=== PATIENT | female | born 1960 | race Caucasian/White ===

== ENCOUNTER 2017-02-21 14:56 | Emergency (ER) | payer OTHER ==
[~2017-02-21] VITALS: Ht 160 cm; Wt 48.0 kg
[2017-02-21 14:57] VITALS: TEMP 36.6; Ht 160 cm; Wt 48.0 kg
[2017-02-21] MEDS ORDERED: DiphenhydrAMINE HCL 50 MG/ML VIAL IV STA (15:12)
[2017-02-21] MEDS ORDERED: DEXAMETHASONE SOD INJ 4 MG/ML VIAL IV STA (15:12)
[2017-02-21] MEDS ORDERED: ALBUT/IPRATROP 3MG/0.5MG NEB 3 ML VIAL INH STA (15:12)
[2017-02-21] MEDS ORDERED: RANITIDINE HCL 50 MG/100 ML D5W IV STA (15:12)
[2017-02-21 15:35] VITALS: O2SAT 100
[2017-02-21 15:44] LABS: BUN/CREATININE RATIO 9.7 (10-20); CALCIUM 9.8 mg/dl (8.5-10.1); CREATININE 0.76 mg/dl (0.60-1.20)
[2017-02-21] MEDS ORDERED: EPINEPHRINE ADULT AUTO-INJECT 0.3 MG SYR IM STA (16:31)
[2017-02-21] MEDS ORDERED: PRED50TA PO (16:32)
[2017-02-21 16:44] VITALS: BP 133/91; PULSE 99; O2SAT 98
--- NOTE | 2017-02-21 20:11 | EMERGENCY ROOM VISIT NOTE ---
History Report prepared by Hermila: Kyrie Reynolds Under the Supervision of: Dr. Kwan Skinner M.D. First contact with patient: 15:07 Chief Complaint: ALLERGIC REACTION Stated Complaint: BEE STING,ALLERIC Nursing Triage Summary: patient reports no hx of allergy to bee stings,patient stung by several bees on face and body,patient reports SOB,patient has hives on right side of abdomen History of Present Illness The patient is a 56 year old female who presents to the Emergency Room with complaints of a sudden allergic reaction that occurred 30 minutes prior to arrival. The patient states that she was power washing outside when she was suddenly stung by multiple bees on her legs and body. She reports that following she started to experience dyspnea, eye swelling, and nausea resulting in one episode of vomiting. The patient reports that the areas where the bees stung are currently pruritic. The patient denies any allergy to medications. She states that she is a current smoker and does not have a history of emphysema. She states that her family doctor Dr. Piedra of [facility]. The patient denies LOC, headache, fevers, chills, diaphoresis, visual changes, neck pain, chest pain, abdominal pain, back pain, melena, hematochezia, urinary symptoms, numbness, weakness, lymphadenopathy, rash, or other complaints. 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 A total of ten systems were reviewed and were otherwise negative. Past Medical & Surgical Medical Problems: (1) Hepatitis C (2) Hypertension Surgical Problems: (1) S/P hip replacement Family History Cancer Heart disease Hypertension Social History Smoking Status: Current Every Day Smoker Smokeless Tobacco Use: Yes Alcohol Use: none Drug Use: none Marital Status: single Housing Status: lives with family Occupation Status: employed Current/Historical Medications Scheduled Prednisone (Prednisone), 50 MG PO DAILY Allergies Coded Allergies: Morphine (Verified Allergy, Mild, RASH, HIVES, 10/25/13) Physical Exam Vital Signs Date Time Temp Pulse Resp B/P (MAP) Pulse Ox O2 Delivery O2 Flow Rate FiO2 02/21/17 16:44 99 18 133/91 98 02/21/17 16:12 78 02/21/17 15:35 100 Room Air 02/21/17 15:35 100 Room Air 02/21/17 15:06 100 Room Air 02/21/17 14:57 36.6 107 24 153/89 100 Room Air Physical Exam GENERAL: Awake, alert, anxious-appearing, in no distress HENT: Normocephalic, atraumatic. Oropharynx unremarkable. EYES: Normal conjunctiva. Sclera non-icteric. Swelling under right eye. NECK: Supple. No nuchal rigidity. FROM. No JVD. RESPIRATORY: Clear to auscultation. CARDIAC: Tachycardic rate, normal rhythm. Extremities warm and well perfused. Pulses equal. ABDOMEN: Soft, non-distended. No tenderness to palpation. No rebound or guarding. No masses. Redness and hives to right trunk. RECTAL: Deferred. MUSCULOSKELETAL: Chest examination reveals no tenderness. The back is symmetrical on inspection without obvious abnormality. There is no CVA tenderness to palpation. No joint edema. LOWER EXTREMITIES: Calves are equal size bilaterally and non-tender. No edema. No discoloration. NEURO: Normal sensorium. No sensory or motor deficits noted. SKIN: No rash or jaundice noted. Medical Decision & Procedures Laboratory Results 02/21/17 15:11 Test 02/21/17 15:11 Anion Gap 9.0 mmol/L (3-11) Est Creatinine Clear Calc Drug Dose 61.9 ml/min Estimated GFR () 100.9 Estimated GFR (Non- 87.1 BUN/Creatinine Ratio 9.7 (10-20) Calcium Level 9.8 mg/dl (8.5-10.1) Laboratory results reviewed by me Medications Administered Medications (Trade) Dose Ordered Sig/Sandra Route Start Time Stop Time Status Last Admin Dose Admin Ranitidine HCl (zANTac IV) 50 mg NOW STAT IV 02/21/17 15:12 02/21/17 15:14 DC 02/21/17 15:19 50 MG Albuterol/ Ipratropium (Duoneb) 3 ml NOW STAT INH 02/21/17 15:12 02/21/17 15:14 DC 02/21/17 15:19 3 ML Diphenhydramine HCl (Benadryl Inj) 50 mg NOW STAT IV 02/21/17 15:12 02/21/17 15:14 DC 02/21/17 15:20 50 MG Dexamethasone Sodium Phosphate (Decadron Inj) 10 mg NOW STAT IV 02/21/17 15:12 02/21/17 15:14 DC 02/21/17 15:20 10 MG Epinephrine (Epipen) 0.3 mg NOW STAT IM 02/21/17 16:31 02/21/17 16:32 DC 02/21/17 16:44 0.3 MG ED Course 1508: The patient was evaluated in room B11B. A complete history and physical exam was performed. 1512: Decadron Injection 10 mg IV, Benadryl Injection 50 mg IV, Duoneb 3 ml INH , Zantac IV 50 mg IV. 1541: I reevaluated the patient. Discussed results and discharge instructions: She verbalized understanding and agreement. The patient is ready for discharge. 1631: Epipen 0.3 mg IM. Medical Decision Triage Nursing notes reviewed and agree them. The patient's history was concerning for possible allergic reaction. Differential diagnosis: Etiologies such as allergic reaction, anaphylaxis, urticaria, Morales-Chris syndrome, toxic epidermal necrolysis, erythema multiforme, cellulitis, as well as others were entertained. Physical examination: As above. ER treatment provided: Continuous cardiac monitoring Benadryl 50 mg IV Zantac 50 mg IV Decadron 10 mg IV On reassessment the patient felt better. The hives resolved. Imaging resolved. Diagnostic interpretation by me: The labs revealed an unremarkable chemistry panel. It appears the patient had an allergic reaction. The above treatment did well to reverse the symptoms. the patient did very well and symptoms resolved. The patient has to be discharged as she has an elderly mother that his home alone and she needs to take care of her. As she had a rapid turnaround I believe this is not unreasonable. I will give the patient an EpiPen and I did give her instructions how to use this. If she worsens in any way she will return or call 911. I gave my usual and customary discussion regarding this issue. By the evaluation outlined above emergent etiologies such as airway compromise, Morales-Chris syndrome, toxic epidermal necrolysis, erythema multiforme, cellulitis, as well as others were deemed relatively unlikely. The patient was informed about the findings as listed above. All questions were answered and she was pleased with the treatment. Return instructions were outlined and the patient was discharged in stable condition. Outpatient prescription management: EpiPen prednisone Referral: The patient was referred back to her primary care physician for follow-up in 2- 3 days for a recheck of the current condition. Medication Reconcilliation Current Medication List: was personally reviewed by me Blood Pressure Screening Patient's blood pressure: Elevated blood pressure Blood pressure disposition: Elevated BP felt to be situational Impression Primary Impression: Allergic reaction Scribe Attestation The scribe's documentation has been prepared under my direction and personally reviewed by me in its entirety. I confirm that the note above accurately reflects all work, treatment, procedures, and medical decision making performed by me. Departure Information Dispostion Home / Self-Care Prescriptions Prednisone (Prednisone) 50 Mg Tab 50 MG PO DAILY for 3 Days, #3 TAB Prov: Kwan Skinner MD 02/21/17 Referrals Hallie Piedra M.D. (PCP) Forms HOME CARE DOCUMENTATION FORM, IMPORTANT VISIT INFORMATION Patient Instructions My [facility] Additional Instructions ALLERGIC REACTION INSTRUCTIONS: DO NOT drive, drink alcohol, operate machinery, or perform dangerous activities today. You were given medications in the ER that can affect your ability to safely function or operate a vehicle. Epi-Pen: Use one injection as instructed for severe allergic reactions associated with shortness of breath, difficulty breathing, or throat or tongue swelling. If you use this injection call 911 or proceed immediately to the nearest Emergency Room. Prednisone 50mg: Once daily until the prescription is finished. It is best to take this earlier in the day as some patients note occasional difficulty falling asleep when taken in the late evening. Diphenhydramine(Benadryl) 25mg: use 25 to 50 mg every six hours for swelling, itching, or hives. This medication is sedating and will cause drowsiness. Avoid alcohol, operating machinery or dangerous equipment, working on ladders or roofs, DRIVING, or situations where being under the influence may be dangerous. Zantac 75: Take two pills twice a day along with Benadryl as needed for swelling , itching, or hives. Most people know this for its affect on the stomach, but it also acts similar to, but less potent than Benadryl for allergic reactions. Both the Benadryl and the Zantac are available [id number]. Continue current medications. Return to the emergency department for worsening of your rash, swelling of your face, lips, tongue, or throat, difficulty breathing, vomiting, or as needed. Follow-up with your primary care physician in 2 to 3 days for a recheck of your current condition.
== END 2017-02-21 16:45 | disposition home or self-care (01) ==
LOC: C.EDB 14:57
DX: T78.40XA Allergy, unspecified, initial encounter (principal); W57.XXXA Bitten or stung by nonvenomous insect and other nonvenomous arthropods, initial encounter; Z86.19 Personal history of other infectious and parasitic diseases; I10 Essential (primary) hypertension; Z80.9 Family history of malignant neoplasm, unspecified; Z82.49 Family history of ischemic heart disease and other diseases of the circulatory system; F17.210 Nicotine dependence, cigarettes, uncomplicated